=== PATIENT | male | born 1940 | race Caucasian/White ===

== ENCOUNTER 2024-06-04 08:01 | Outpatient (CLI) | payer MEDICARE, OTHER ==
[2024-06-04] MEDS ORDERED: Iopamidol 370 76% 100 ML VIAL ONE (13:43)
== END 2024-06-04 08:02 | disposition home or self-care (01) ==
LOC: CT 08:01
PROVIDERS: ATTEND Internal Medicine
DX: G95.89 Other specified diseases of spinal cord (principal); M48.9 Spondylopathy, unspecified; M79.89 Other specified soft tissue disorders
CPT/HCPCS: 36415; 74177; 82565; Q9967

== ENCOUNTER 2024-06-28 08:45 | Outpatient (CLI) | payer MEDICARE, OTHER | END 2024-06-28 08:46 | disposition home or self-care (01) | LOC: PET 08:45 | PROVIDERS: ATTEND Internal Medicine Hematology & Oncology | DX: C90.00 Multiple myeloma not having achieved remission (principal); C79.51 Secondary malignant neoplasm of bone; E83.52 Hypercalcemia; E88.89 Other specified metabolic disorders | CPT/HCPCS: 78816; A9552 ==

== ENCOUNTER 2024-07-28 23:00 | Inpatient (IN) | payer MEDICARE, OTHER ==
[2024-07-29 00:01] LABS: #Basophils Less than 0.03 10x3/uL (0.0-0.2); #Eosinophils Less than 0.03 10x3/uL (0.0-0.7); %Basophils 0.4 % (0.0-1.0); %Eosinophils 0.8 % (0.0-10.0); %Lymphocytes 5.8 % (21.0-51.0); %Monocytes 5.8 % (0.0-10.0); %Neutrophils 86.4 % (42.0-75.0); Hematocrit 30.2 % (42.0-52.0); Hemoglobin 10.6 g/dL (14.0-18.0); Mean Corpuscular HGB CONC 35.1 g/dL (32.0-36.0); Mean Corpuscular Hemoglobin 31.6 pg (27.0-31.0); Mean Corpuscular Volume 90.1 fL (78.0-98.0); Mean Platelet Volume 9.4 fL (7.4-10.4); Platelet Count 204 10x3/uL (130-400); RBC Distribution Width 15.8 % (11.5-14.5); Red Blood Cell (RBC) Count 3.35 mill/uL (4.70-6.10)
[2024-07-29 00:34] LABS: ALT (SGPT) 32 U/L (Less than 45); AST (SGOT) 30 U/L (11-34); Albumin 2.1 g/dL (3.1-4.5); Alkaline Phosphatase 62 U/L (40-110); Anion Gap 10 mmol/L (10-20); BUN (Urea Nitrogen) 18 mg/dL (8.4-25.7); Bilirubin, Total 0.6 mg/dL (0.3-1.2); Calc. Creatinine Clearance 0 mL/min (70-130); Calcium 7.5 mg/dL (7.8-10.44); Carbon Dioxide 20 mmol/L (23-31); Chloride 104 mmol/L (98-107); Estimated GFR 87; Globulin 3.7 g/dL (2.4-3.5); Glucose 116 mg/dL (83-110); Potassium 3.3 mmol/L (3.5-5.1); Protein, Total 5.8 g/dL (5.8-8.1); Sodium 131 mmol/L (136-145)
[2024-07-29 00:38] LABS: Troponin I Less than 0.010 ng/mL (< 0.028)
[2024-07-29 01:12] LABS: Bacteria/HPF None Seen HPF (None Seen); Bilirubin Negative (Negative); Blood, Urine Negative (Negative); CAUTI Indications for Culture Alt mental st,lethar; Clarity Clear (Clear); Glucose, Urine (Dipstick) Normal (Negative); Ketone, Urine Negative (Negative); Leukocyte Negative Leu/uL (Negative); Nitrite Negative (Negative); Protein, Urine (Dipstick) 20 mg/dL (Neg-Trace); RBC/HPF 0-3 HPF (0-3); Specific Gravity, Urine 1.025 (1.002-1.036); Squamous Epithelial None Seen HPF (0-3)
[2024-07-29 01:15] LABS: Urine Culture Reflex No No
[2024-07-29] MEDS ORDERED: Electrolyte Replacement Protocol 1 EACH FS PRN (02:45)
[2024-07-29] MEDS ORDERED: Calcium Carbonate 500 MG ChewTAB PO PRN (02:46)
[2024-07-29] MEDS ORDERED: Acetaminophen 650 MG Suppository PR PRN (02:46)
[2024-07-29] MEDS ORDERED: Ondansetron PF 4 MG/2 ML Vial IVP PRN (02:46)
[2024-07-29] MEDS ORDERED: Ondansetron ODT 4 MG TAB PO PRN (02:46)
[2024-07-29] MEDS ORDERED: Acetaminophen 325 MG TAB ONE (05:41)
[2024-07-29] MEDS ORDERED: LENALIDOMIDE 25 MG PO SCH (09:00)
[2024-07-29 09:24] VITALS: BMI 20.2
[2024-07-29] MEDS ORDERED: Potassium Chloride 20 MEQ TAB ONE (09:29)
[2024-07-29] MEDS: Lactated Ringer's 500 ML IV SCH (09:34)
[2024-07-29] MEDS: Potassium Chloride 20 MEQ TAB PO SCH (09:35)
[2024-07-29] MEDS ORDERED: Levothyroxine Sodium 112 MCG TAB ONE (12:08)
[2024-07-29] MEDS: Levothyroxine Sodium 25 MCG TAB PO SCH (12:09)
[2024-07-29] MEDS: Levothyroxine Sodium 112 MCG TAB PO SCH (12:09)
[2024-07-29] MEDS: Lenalidomide [Revlimid] 25 MG Capsule PO SCH (14:17)
[2024-07-29 14:20] LABS: Influenza A by NAA Not Detected (NotDetected); Influenza B by NAA Not Detected (NotDetected); RSV by NAA Not Detected (NotDetected); SARS-CoV-2 NAA Rapid Test Not Detected (NotDetected)
[2024-07-29] MEDS: Flecainide 50 MG TAB PO SCH (21:15)
[2024-07-29] MEDS: Rivaroxaban 10 MG TAB PO SCH (23:18)
[2024-07-29] MEDS: Aspirin Chewable 81 MG TAB PO SCH (23:18)
[2024-07-30 05:29] LABS: #Basophils Less than 0.03 10x3/uL (0.0-0.2); #Eosinophils Less than 0.03 10x3/uL (0.0-0.7); %Basophils 0.3 % (0.0-1.0); %Lymphocytes 14.4 % (21.0-51.0); %Monocytes 4.3 % (0.0-10.0); %Neutrophils 80.5 % (42.0-75.0); Hematocrit 33.4 % (42.0-52.0); Hemoglobin 11.7 g/dL (14.0-18.0); Mean Corpuscular Volume 91.3 fL (78.0-98.0); Mean Platelet Volume 9.4 fL (7.4-10.4); Platelet Count 228 10x3/uL (130-400); RBC Distribution Width 15.6 % (11.5-14.5); Red Blood Cell (RBC) Count 3.66 mill/uL (4.70-6.10)
[2024-07-30] MEDS: Levothyroxine Sodium 25 MCG TAB PO SCH (05:34)
[2024-07-30] MEDS: Levothyroxine Sodium 112 MCG TAB PO SCH (05:34)
[2024-07-30 05:53] LABS: ALT (SGPT) 37 U/L (Less than 45); AST (SGOT) 36 U/L (11-34); Albumin 2.5 g/dL (3.1-4.5); Alkaline Phosphatase 76 U/L (40-110); Anion Gap 14 mmol/L (10-20); BUN (Urea Nitrogen) 13 mg/dL (8.4-25.7); Bilirubin, Direct 0.3 mg/dL (0.1-0.3); Calc. Creatinine Clearance 64 mL/min (70-130); Carbon Dioxide 22 mmol/L (23-31); Chloride 98 mmol/L (98-107); Estimated GFR 85; Glucose 108 mg/dL (83-110); Potassium 4.2 mmol/L (3.5-5.1); Protein, Total 6.8 g/dL (5.8-8.1); Sodium 130 mmol/L (136-145)
[2024-07-30 06:24] LABS: Magnesium 1.6 mg/dL (1.6-2.6)
[2024-07-30] MEDS: Finasteride 5 MG TAB PO SCH (08:47)
[2024-07-30] MEDS: Tamsulosin HCl 0.4 MG CAP PO SCH (08:47)
[2024-07-30] MEDS: Dexamethasone 4 MG TAB PO SCH (08:47)
[2024-07-30] MEDS: valACYclovir 500 MG TAB PO SCH (08:47)
[2024-07-30] MEDS: Magnesium 2 GM/50 ML(in water) 2 GM in Premix 1 BAG IVPB SCH (08:48)
[2024-07-30] MEDS: Acetaminophen 325 MG TAB PO PRN (08:59)
[2024-07-30] MEDS ORDERED: Rivaroxaban 10 MG TAB PO SCH (09:00)
[2024-07-30] MEDS ORDERED: Aspirin Chewable 81 MG TAB PO SCH (09:00)
[2024-07-30] MEDS: Sodium Chloride 0.9% 1,000 ML IV SCH ×2 (11:39→17:24)
[2024-07-30 12:14] LABS: Bacteria/HPF None Seen HPF (None Seen); Bilirubin Negative (Negative); Blood, Urine Negative (Negative); CAUTI Indications for Culture Alt mental st,lethar; Clarity Clear (Clear); Glucose, Urine (Dipstick) Normal (Negative); Ketone, Urine Negative (Negative); Leukocyte Negative Leu/uL (Negative); Nitrite Negative (Negative); Protein, Urine (Dipstick) 20 mg/dL (Neg-Trace); RBC/HPF 0-3 HPF (0-3); Specific Gravity, Urine 1.015 (1.002-1.036); Squamous Epithelial None Seen HPF (0-3); Urobilinogen Normal mg/dL (Less than 2); pH, Urine 5.5 (5.0-9.0)
[2024-07-30 12:18] LABS: Urine Culture Reflex No No
[2024-07-30] MEDS: Metoprolol Tartrate 25 MG TAB PO SCH (16:04)
[2024-07-30] MEDS: Digoxin 0.5 MG/2 ML AMP SLOW IVP SCH (16:14)
[2024-07-30] MEDS: dilTIAZem 25 MG/5 ML VIAL SLOW IVP SCH (17:08)
[2024-07-30] MEDS: Rivaroxaban 10 MG TAB PO SCH (17:36)
[2024-07-30] MEDS: Aspirin Chewable 81 MG TAB PO SCH (20:36)
[2024-07-30] MEDS: traMADol HCl 50 MG TAB PO PRN (22:40)
[2024-07-30] MEDS: dilTIAZem 125 MG in Sodium Chloride 0.9% 100 ML IVPB SCH (22:52)
[2024-07-31 05:03] LABS: Hemoglobin 10.5 g/dL (14.0-18.0); Mean Corpuscular HGB CONC 36.2 g/dL (32.0-36.0); Mean Corpuscular Hemoglobin 32.2 pg (27.0-31.0); Mean Platelet Volume 9.8 fL (7.4-10.4); Platelet Count 190 10x3/uL (130-400); RBC Distribution Width 15.6 % (11.5-14.5); Red Blood Cell (RBC) Count 3.26 mill/uL (4.70-6.10)
[2024-07-31 05:34] LABS: Anion Gap 13 mmol/L (10-20); BUN (Urea Nitrogen) 20 mg/dL (8.4-25.7); Calc. Creatinine Clearance 67 mL/min (70-130); Calcium 6.7 mg/dL (7.8-10.44); Carbon Dioxide 18 mmol/L (23-31); Chloride 104 mmol/L (98-107); Estimated GFR 86; Glucose 128 mg/dL (83-110); Magnesium 1.8 mg/dL (1.6-2.6); Potassium 3.3 mmol/L (3.5-5.1); Sodium 132 mmol/L (136-145)
[2024-07-31 05:41] LABS: Band 3 % (5-11); Burr Cells SLIGHT = 2-5 cells HPF (0-1); Large Platelets 3.8 % (0-5); Lymphocytes 3 % (21-51); Monocytes 12 % (0-10); Neutrophil 82 % (42-75); Platelet Adequacy Comment Platelets Normal; Polychromasia SLIGHT = 2-3 cells HPF (0-2); Reactive Lymphocytes 1 % (0-10); Smudge Cells 5.8 %
[2024-07-31] MEDS: Lorazepam 2 MG/ML VIAL SLOW IVP PRN (09:47)
[2024-07-31] MEDS: Magnesium 2 GM/50 ML(in water) 2 GM in Premix 1 BAG IVPB SCH ×2 (09:58→16:08)
[2024-07-31] MEDS: Potassium Chloride 20 MEQ TAB PO SCH ×3 (09:58→16:18)
[2024-07-31] MEDS: QUEtiapine 25 MG TAB PO SCH ×2 (13:43→21:16)
[2024-07-31] MEDS ORDERED: Magnesium Sulfate 4 GM in Sodium Chloride 0.9% 250 ML 250 ML IVPB SCH (14:15)
[2024-07-31] MEDS: Sodium Chloride 0.9% 1,000 ML IV SCH (16:13)
[2024-07-31] MEDS: Amiodarone 200 MG TAB PO SCH (21:16)
[2024-08-01 04:26] LABS: Hematocrit 27.3 % (42.0-52.0); Hemoglobin 9.6 g/dL (14.0-18.0); Mean Corpuscular HGB CONC 35.2 g/dL (32.0-36.0); Mean Platelet Volume 9.7 fL (7.4-10.4); Platelet Count 175 10x3/uL (130-400); RBC Distribution Width 15.9 % (11.5-14.5)
[2024-08-01 04:45] LABS: Anion Gap 11 mmol/L (10-20); BUN (Urea Nitrogen) 18 mg/dL (8.4-25.7); Calc. Creatinine Clearance 82 mL/min (70-130); Calcium 6.6 mg/dL (7.8-10.44); Carbon Dioxide 18 mmol/L (23-31); Chloride 107 mmol/L (98-107); Estimated GFR 92; Glucose 101 mg/dL (83-110); Magnesium 2.5 mg/dL (1.6-2.6); Potassium 3.7 mmol/L (3.5-5.1); Sodium 132 mmol/L (136-145)
[2024-08-01] MEDS: Ipratropium/Albuterol 3 ML NEB NEB PRN (04:55)
[2024-08-01 05:23] LABS: Actual Bicarbonate (HCO3a) 18.1 mEq/L (22-28); Base Excess (BEa) -4.8 mEq/L (-2.0 to +3.0); CO2 Tension 26.7 mmHg (35.0-45.0); Calcium, Ionized (arterial) 0.98 mmol/L (1.12-1.30); Carboxyhemoglobin (COHb) 0.3 gm% (0.0-3.0); Hematocrit-ABG 29 % (42.0-52.0); Hemoglobin (Hb) 9.9 g/dL (14.0-18.0); O2 Tension (PaO2), arterial 73.3 mmHg (> 60.0); Potassium - ABG Lab 3.62 mmol/L (3.70-5.30)
[2024-08-01 05:24] LABS: Puncture Site Left Radial artery
[2024-08-01 05:25] LABS: ALV-art Gradient 43.055 mmHg (0-20)
[2024-08-01] MEDS: Sodium Chloride 0.65% Nasal 44 ML BOT EA NARE PRN (05:48)
[2024-08-01 06:21] LABS: Lactic Acid 0.69 mmol/L (0.50-2.20)
[2024-08-01 07:04] LABS: Anisocytosis SLIGHT = 6-15 cells HPF (0-5); Band 14 % (5-11); Burr Cells SLIGHT = 2-5 cells HPF (0-1); Eosinophils 1 % (0-10); Large Platelets 5.9 % (0-5); Lymphocytes 21 % (21-51); Macrocytosis SLIGHT = 6-15 cells HPF (0-5); Monocytes 9 % (0-10); Neutrophil 56 % (42-75); Nucleated RBC (Manual Ct) 1 % (0); Platelet Adequacy Comment Platelets Normal; Polychromasia SLIGHT = 2-3 cells HPF (0-2); Smudge Cells 18.6 %
[2024-08-01] MEDS: Amiodarone 200 MG TAB PO SCH ×2 (09:28→14:59)
[2024-08-01] MEDS: QUEtiapine 100 MG TAB PO SCH (21:17)
[2024-08-02 05:03] LABS: Anion Gap 13 mmol/L (10-20); BUN (Urea Nitrogen) 15 mg/dL (8.4-25.7); Calc. Creatinine Clearance 83 mL/min (70-130); Calcium 6.7 mg/dL (7.8-10.44); Carbon Dioxide 18 mmol/L (23-31); Chloride 110 mmol/L (98-107); Estimated GFR 92; Glucose 100 mg/dL (83-110); Magnesium 2.1 mg/dL (1.6-2.6); Potassium 3.9 mmol/L (3.5-5.1); Sodium 137 mmol/L (136-145)
[2024-08-02 05:13] LABS: Hematocrit 26.6 % (42.0-52.0); Hemoglobin 9.4 g/dL (14.0-18.0); Mean Corpuscular HGB CONC 35.3 g/dL (32.0-36.0); Mean Corpuscular Hemoglobin 32.1 pg (27.0-31.0); Mean Corpuscular Volume 90.8 fL (78.0-98.0); Mean Platelet Volume 9.9 fL (7.4-10.4); Platelet Count 193 10x3/uL (130-400); RBC Distribution Width 16.2 % (11.5-14.5); Red Blood Cell (RBC) Count 2.93 mill/uL (4.70-6.10)
[2024-08-02 05:57] LABS: Anisocytosis SLIGHT = 6-15 cells HPF (0-5); Band 8 % (5-11); Dohle Bodies SLIGHT; Lymphocytes 8 % (21-51); Monocytes 11 % (0-10); Neutrophil 59 % (42-75); Ovalocytes SLIGHT = 2-5 cells HPF (0-1); Platelet Adequacy Comment Platelets Normal; Polychromasia SLIGHT = 2-3 cells HPF (0-2); Reactive Lymphocytes 15 % (0-10); Smudge Cells 29.4 %; Toxic Granulation SLIGHT
[2024-08-02] MEDS: Sodium Chloride 0.9% 1,000 ML IV SCH (09:14)
[2024-08-02] MEDS: Metoprolol Succinate XL 25 MG ER.TAB PO SCH (09:16)
[2024-08-02] MEDS: Calcium Carbonate 500 MG ChewTAB PO SCH (09:17)
[2024-08-02] MEDS: Potassium Chloride 20 MEQ TAB PO SCH (09:18)
[2024-08-02] MEDS: CALCIUM GLUC 1 GM/NS 50 ML 1 GM in Premix 1 BAG IVPB SCH (11:10)
[2024-08-02] MEDS: QUEtiapine 25 MG TAB PO SCH (20:35)
[2024-08-02] MEDS: Amiodarone 200 MG TAB PO SCH (20:36)
[2024-08-02] MEDS: Lorazepam 2 MG/ML VIAL SLOW IVP SCH (22:52)
[2024-08-03] MEDS: Lorazepam 2 MG/ML VIAL SLOW IVP SCH ×2 (02:26→11:29)
[2024-08-03 05:11] LABS: Hematocrit 26.6 % (42.0-52.0); Hemoglobin 9.4 g/dL (14.0-18.0); Mean Corpuscular HGB CONC 35.3 g/dL (32.0-36.0); Mean Corpuscular Volume 90.5 fL (78.0-98.0); Mean Platelet Volume 9.5 fL (7.4-10.4); Platelet Count 221 10x3/uL (130-400); RBC Distribution Width 16.2 % (11.5-14.5); Red Blood Cell (RBC) Count 2.94 mill/uL (4.70-6.10)
[2024-08-03 05:16] LABS: Anion Gap 12 mmol/L (10-20); BUN (Urea Nitrogen) 18 mg/dL (8.4-25.7); Calc. Creatinine Clearance 72 mL/min (70-130); Calcium 7.6 mg/dL (7.8-10.44); Carbon Dioxide 19 mmol/L (23-31); Chloride 107 mmol/L (98-107); Estimated GFR 88; Glucose 83 mg/dL (83-110); Magnesium 1.7 mg/dL (1.6-2.6); Potassium 3.8 mmol/L (3.5-5.1); Sodium 134 mmol/L (136-145)
[2024-08-03 05:58] LABS: Anisocytosis SLIGHT = 6-15 cells HPF (0-5); Band 6 % (5-11); Lymphocytes 27 % (21-51); Monocytes 9 % (0-10); Neutrophil 51 % (42-75); Ovalocytes SLIGHT = 2-5 cells HPF (0-1); Platelet Adequacy Comment Platelets Normal; Polychromasia SLIGHT = 2-3 cells HPF (0-2); Reactive Lymphocytes 7 % (0-10)
[2024-08-03] MEDS: Magnesium 2 GM/50 ML(in water) 2 GM in Premix 1 BAG IVPB SCH (07:51)
[2024-08-03] MEDS: Potassium Chloride 20 MEQ TAB PO SCH (07:58)
[2024-08-03] MEDS: Metoprolol Succinate XL 50 MG ER.TAB PO SCH (08:06)
[2024-08-03] MEDS ORDERED: traZODone HCl 50 MG TAB PO PRN (11:01)
[2024-08-03] MEDS: Pantoprazole 40 MG DR.TAB PO SCH (11:29)
[2024-08-03] MEDS: Dexamethasone 4 MG TAB PO SCH (11:29)
[2024-08-03] MEDS: Benztropine 1 MG TAB PO SCH (11:30)
[2024-08-03] MEDS: QUEtiapine 25 MG TAB PO SCH (11:30)
[2024-08-03] MEDS: Senokot 8.6 MG TAB PO SCH (11:30)
[2024-08-03] MEDS: Haloperidol Lactate 5 MG/ML VIAL SLOW IVP SCH (23:47)
[2024-08-04] MEDS: Senokot 8.6 MG TAB PO SCH (01:32)
[2024-08-04] MEDS: QUEtiapine 100 MG TAB PO SCH (01:32)
[2024-08-04 04:33] LABS: Anion Gap 13 mmol/L (10-20); BUN (Urea Nitrogen) 22 mg/dL (8.4-25.7); Calc. Creatinine Clearance 83 mL/min (70-130); Calcium 7.3 mg/dL (7.8-10.44); Carbon Dioxide 18 mmol/L (23-31); Chloride 106 mmol/L (98-107); Estimated GFR 92; Glucose 97 mg/dL (83-110); Magnesium 1.7 mg/dL (1.6-2.6); Potassium 3.8 mmol/L (3.5-5.1); Sodium 133 mmol/L (136-145)
[2024-08-04] MEDS: Metoprolol Tartrate 5 MG (5 mL) VIAL IVP SCH (05:50)
[2024-08-04] MEDS: Magnesium 2 GM/50 ML(in water) 2 GM in Premix 1 BAG IVPB SCH ×2 (08:11→16:39)
[2024-08-04] MEDS: Pantoprazole 40 MG DR.TAB PO SCH (08:12)
[2024-08-04] MEDS: Metoprolol Succinate XL 50 MG ER.TAB PO SCH (08:12)
[2024-08-04] MEDS: Polyethylene Glycol 3350 17 GM Packet PO SCH (16:39)
[2024-08-04] MEDS: traZODone HCl 50 MG TAB PO SCH (19:37)
[2024-08-04] MEDS ORDERED: Lorazepam 2 MG/ML VIAL SLOW IVP SCH (20:45)
[2024-08-04] MEDS: Lorazepam 2 MG/ML VIAL SLOW IVP SCH (20:45)
[2024-08-04 21:26] LABS: Actual Bicarbonate (HCO3v) 18.2 mEq/L (22-28); Analyzer IN Cardio OR; Base Excess -6.5 mEq/L (-2.0 to +3.0); Calcium, Ionized (venous) 0.97 mmol/L (1.16-1.32); Chloride (VBG) 105 mmol/L (98-106); Hematocrit-VBG 32 % (42.0-52.0); Hemoglobin (Hb) 10.9 g/dL (12.6-17.4); Potassium (VBG) 4.44 mmol/L (3.70-5.30); Sodium 135 mmol/L (133-146); pH (venous) 7.355 (7.32-7.43)
[2024-08-04 21:32] LABS: Hematocrit 30.3 % (42.0-52.0); Hemoglobin 10.1 g/dL (14.0-18.0); Mean Corpuscular HGB CONC 33.3 g/dL (32.0-36.0); Mean Corpuscular Hemoglobin 31.7 pg (27.0-31.0); Mean Platelet Volume 9.4 fL (7.4-10.4); Platelet Count 245 10x3/uL (130-400); RBC Distribution Width 16.5 % (11.5-14.5); Red Blood Cell (RBC) Count 3.19 mill/uL (4.70-6.10)
[2024-08-04] MEDS ORDERED: Haloperidol Lactate 5 MG/ML VIAL IM PRN (21:41)
[2024-08-04 21:47] LABS: ALT (SGPT) 36 U/L (Less than 45); AST (SGOT) 30 U/L (11-34); Albumin 2.3 g/dL (3.1-4.5); Alkaline Phosphatase 71 U/L (40-110); Anion Gap 18 mmol/L (10-20); BUN (Urea Nitrogen) 30 mg/dL (8.4-25.7); Bilirubin, Total 1.2 mg/dL (0.3-1.2); CK (CPK) 147 U/L (30-200); Calc. Creatinine Clearance 48 mL/min (70-130); Calcium 7.6 mg/dL (7.8-10.44); Carbon Dioxide 16 mmol/L (23-31); Chloride 107 mmol/L (98-107); Estimated GFR 63; Globulin 3.6 g/dL (2.4-3.5); Glucose 117 mg/dL (83-110); Potassium 4.5 mmol/L (3.5-5.1); Protein, Total 5.9 g/dL (5.8-8.1); Sodium 136 mmol/L (136-145)
[2024-08-04 21:48] LABS: Troponin I Less than 0.010 ng/mL (< 0.028)
[2024-08-04 22:01] LABS: Anisocytosis SLIGHT = 6-15 cells HPF (0-5); Band 9 % (5-11); Burr Cells SLIGHT = 2-5 cells HPF (0-1); Dohle Bodies SLIGHT; Lymphocytes 47 % (21-51); Monocytes 9 % (0-10); Neutrophil 10 % (42-75); Ovalocytes SLIGHT = 2-5 cells HPF (0-1); Platelet Adequacy Comment Platelets Normal; Poikilocytosis SLIGHT = 6-15 cells HPF (0-5); Polychromasia SLIGHT = 2-3 cells HPF (0-2); Reactive Lymphocytes 25 % (0-10); Schistocytes SLIGHT = 2-5 cells HPF (0-1); Smudge Cells 14.1 %; Toxic Granulation SLIGHT; Vacuoles SLIGHT
[2024-08-04] MEDS: Haloperidol Lactate 5 MG/ML VIAL ONE (22:50)
[2024-08-04] MEDS: Sodium Chloride 0.9% 1,000 ML IV SCH (22:51)
[2024-08-05] MEDS ORDERED: Etomidate 40 MG (20 mL) VIAL ONE
[2024-08-05] MEDS ORDERED: Rocuronium Bromide 10 MG/ML (10ML VIAL) ONE
[2024-08-05] MEDS: NOREPINEPHRINE 8 MG/250 ML-D5W 250 ML ONE (00:15)
[2024-08-05] MEDS ORDERED: Ventilator Sedation Protocol FS SCH (00:30)
[2024-08-05 00:42] LABS: Actual Bicarbonate (HCO3a) 21.5 mEq/L (22-28); Base Excess (BEa) -3.6 mEq/L (-2.0 to +3.0); CO2 Tension 38.9 mmHg (35.0-45.0); Calcium, Ionized (arterial) 1.04 mmol/L (1.12-1.30); Carboxyhemoglobin (COHb) 0.6 gm% (0.0-3.0); Hematocrit-ABG 27 % (42.0-52.0); Hemoglobin (Hb) 9.3 g/dL (14.0-18.0); O2 Tension (PaO2), arterial 83.2 mmHg (> 60.0); Potassium - ABG Lab 3.85 mmol/L (3.70-5.30)
[2024-08-05] MEDS ORDERED: Fentanyl BOLUS 250 ML IVPB PRN (00:45)
[2024-08-05] MEDS ORDERED: Morphine 2 MG/ML VIAL SLOW IVP PRN (00:45)
[2024-08-05] MEDS ORDERED: DISCONTINUE PREVIOUS NARCOTIC PAIN MEDICATIONS AND BENZODIAZEPINES FS SCH (00:45)
[2024-08-05] MEDS ORDERED: Propofol BOLUS 1,000 MG/100 ML VIAL IV PRN (00:45)
[2024-08-05 00:47] LABS: Puncture Site Right Radial artery
[2024-08-05 00:48] LABS: ALV-art Gradient 153.375 mmHg (0-20)
[2024-08-05] MEDS: Sodium Chloride 0.9% 500 ML IV SCH (01:00)
[2024-08-05] MEDS: Lorazepam 2 MG/ML VIAL SLOW IVP PRN (01:31)
[2024-08-05 01:41] LABS: ALT (SGPT) 34 U/L (Less than 45); AST (SGOT) 29 U/L (11-34); Albumin 2.2 g/dL (3.1-4.5); Alkaline Phosphatase 66 U/L (40-110); Anion Gap 14 mmol/L (10-20); BUN (Urea Nitrogen) 30 mg/dL (8.4-25.7); Bilirubin, Total 1.2 mg/dL (0.3-1.2); Calc. Creatinine Clearance 54 mL/min (70-130); Calcium 7.2 mg/dL (7.8-10.44); Carbon Dioxide 19 mmol/L (23-31); Chloride 108 mmol/L (98-107); Estimated GFR 73; Globulin 3.4 g/dL (2.4-3.5); Glucose 151 mg/dL (83-110); Potassium 3.8 mmol/L (3.5-5.1); Protein, Total 5.6 g/dL (5.8-8.1); Sodium 137 mmol/L (136-145)
[2024-08-05 01:42] LABS: Lactic Acid 1.52 mmol/L (0.50-2.20)
[2024-08-05] MEDS: Dexmedetomidine In 0.9 % NaCl 100 ML IVPB SCH (03:56)
[2024-08-05 04:02] LABS: Anion Gap 13 mmol/L (10-20); BUN (Urea Nitrogen) 29 mg/dL (8.4-25.7); Calc. Creatinine Clearance 56 mL/min (70-130); Calcium 7.1 mg/dL (7.8-10.44); Carbon Dioxide 19 mmol/L (23-31); Chloride 106 mmol/L (98-107); Estimated GFR 77; Glucose 157 mg/dL (83-110); Magnesium 2.2 mg/dL (1.6-2.6); Potassium 3.8 mmol/L (3.5-5.1); Sodium 134 mmol/L (136-145)
[2024-08-05 04:14] LABS: Hematocrit 28.4 % (42.0-52.0); Hemoglobin 9.8 g/dL (14.0-18.0); Mean Corpuscular HGB CONC 34.5 g/dL (32.0-36.0); Mean Corpuscular Hemoglobin 32.5 pg (27.0-31.0); Mean Platelet Volume 9.4 fL (7.4-10.4); Platelet Count 217 10x3/uL (130-400); RBC Distribution Width 16.6 % (11.5-14.5); Red Blood Cell (RBC) Count 3.02 mill/uL (4.70-6.10)
[2024-08-05 04:49] LABS: Anisocytosis SLIGHT = 6-15 cells HPF (0-5); Burr Cells SLIGHT = 2-5 cells HPF (0-1); Large Platelets 30.8 % (0-5); Lymphocytes 38 % (21-51); Monocytes 8 % (0-10); Neutrophil 23 % (42-75); Ovalocytes SLIGHT = 2-5 cells HPF (0-1); Platelet Adequacy Comment Platelets Normal; Poikilocytosis SLIGHT = 6-15 cells HPF (0-5); Polychromasia SLIGHT = 2-3 cells HPF (0-2); Reactive Lymphocytes 31 % (0-10); Tear Drops SLIGHT = 2-5 cells HPF (0-1)
[2024-08-05] MEDS: Propofol 1,000 MG/100 ML VIAL IV PRN (06:40)
[2024-08-05] MEDS: Fentanyl CADD 100 ML IV SCH (09:48)
[2024-08-05] MEDS: NOREPINEPHRINE 8 MG/250 ML-D5W 250 ML IVPB SCH (11:27)
[2024-08-05] MEDS: Sodium Chloride 0.9% 1,000 ML IV SCH (11:37)
[2024-08-05] MEDS: Digoxin 0.5 MG/2 ML AMP SLOW IVP SCH (11:41)
[2024-08-05] MEDS: Thiamine HCl 200 MG/2 ML VIAL SLOW IVP SCH (16:31)
[2024-08-05] MEDS: Metoprolol Tartrate 25 MG TAB PO SCH (20:06)
[2024-08-06 04:13] LABS: Hematocrit 25.2 % (42.0-52.0); Hemoglobin 8.7 g/dL (14.0-18.0); Mean Corpuscular HGB CONC 34.5 g/dL (32.0-36.0); Mean Corpuscular Hemoglobin 32.1 pg (27.0-31.0); Mean Platelet Volume 9.5 fL (7.4-10.4); Platelet Count 161 10x3/uL (130-400); RBC Distribution Width 16.8 % (11.5-14.5); Red Blood Cell (RBC) Count 2.71 mill/uL (4.70-6.10)
[2024-08-06 04:43] LABS: Anion Gap 11 mmol/L (10-20); BUN (Urea Nitrogen) 20 mg/dL (8.4-25.7); Calc. Creatinine Clearance 91 mL/min (70-130); Calcium 6.4 mg/dL (7.8-10.44); Carbon Dioxide 19 mmol/L (23-31); Chloride 110 mmol/L (98-107); Estimated GFR 93; Glucose 111 mg/dL (83-110); Magnesium 1.8 mg/dL (1.6-2.6); Potassium 3.7 mmol/L (3.5-5.1); Sodium 136 mmol/L (136-145)
[2024-08-06 04:46] LABS: Anisocytosis SLIGHT = 6-15 cells HPF (0-5); Band 2 % (5-11); Burr Cells SLIGHT = 2-5 cells HPF (0-1); Hypochromia SLIGHT = 6-15 cells HPF (0-5); Large Platelets 17.2 % (0-5); Lymphocytes 74 % (21-51); Monocytes 12 % (0-10); Myelocyte 2 % (0-0); Neutrophil 9 % (42-75); Platelet Adequacy Comment Platelets Normal; Polychromasia SLIGHT = 2-3 cells HPF (0-2); Reactive Lymphocytes 2 % (0-10); Smudge Cells 17.2 %
[2024-08-06] MEDS: Folic Acid 1 MG TAB PER TUBE SCH (09:18)
[2024-08-06] MEDS: Magnesium 2 GM/50 ML(in water) 2 GM in Premix 1 BAG IVPB SCH (09:25)
[2024-08-06] MEDS ORDERED: Bisacodyl 10 MG SUPP PR PRN (12:08)
[2024-08-06] MEDS ORDERED: Bisacodyl 10 MG SUPP PR ONE (12:09)
[2024-08-06] MEDS: Potassium Bicarbonate/Cit Ac 20 MEQ TAB PO SCH (13:07)
[2024-08-06] MEDS: Sodium Chloride 0.9% 500 ML IV SCH (13:10)
[2024-08-06] MEDS: Digoxin 0.5 MG/2 ML AMP SLOW IVP SCH ×2 (13:28→13:37)
[2024-08-06] MEDS: Piperacillin/Tazobactam 3.375 GM in Sodium Chloride 0.9% 100 ML IVPB SCH ×2 (13:39→17:14)
[2024-08-06] MEDS: Niacin SR 500 MG CAP PER TUBE SCH (14:18)
[2024-08-06] MEDS ORDERED: Piperacillin/Tazobactam 4.5 GM in Sodium Chloride 0.9% 100 ML IVPB SCH (18:00)
[2024-08-06] MEDS: Dexamethasone 4 MG TAB PO SCH (19:17)
[2024-08-07 04:42] LABS: Hematocrit 24.9 % (42.0-52.0); Hemoglobin 8.4 g/dL (14.0-18.0); Mean Corpuscular HGB CONC 33.7 g/dL (32.0-36.0); Mean Corpuscular Hemoglobin 31.7 pg (27.0-31.0); Mean Platelet Volume 9.5 fL (7.4-10.4); Platelet Count 165 10x3/uL (130-400); RBC Distribution Width 17.2 % (11.5-14.5); Red Blood Cell (RBC) Count 2.65 mill/uL (4.70-6.10)
[2024-08-07 04:46] LABS: Digoxin 0.24 ng/mL (0.8-2.0)
[2024-08-07 04:49] LABS: Anion Gap 11 mmol/L (10-20); BUN (Urea Nitrogen) 17 mg/dL (8.4-25.7); Calc. Creatinine Clearance 83 mL/min (70-130); Calcium 6.6 mg/dL (7.8-10.44); Carbon Dioxide 18 mmol/L (23-31); Chloride 109 mmol/L (98-107); Estimated GFR 91; Glucose 133 mg/dL (83-110); Magnesium 2.2 mg/dL (1.6-2.6); Potassium 3.6 mmol/L (3.5-5.1); Sodium 134 mmol/L (136-145)
[2024-08-07 05:23] LABS: Anisocytosis SLIGHT = 6-15 cells HPF (0-5); Band 14 % (5-11); Burr Cells SLIGHT = 2-5 cells HPF (0-1); Hypochromia SLIGHT = 6-15 cells HPF (0-5); Large Platelets 28.6 % (0-5); Lymphocytes 14 % (21-51); Monocytes 14 % (0-10); Neutrophil 57 % (42-75); Ovalocytes SLIGHT = 2-5 cells HPF (0-1); Platelet Adequacy Comment Platelets Normal; Poikilocytosis MODERATE=16-30 cells HPF (0-5); Polychromasia SLIGHT = 2-3 cells HPF (0-2); Smudge Cells 14.3 %; Toxic Granulation MODERATE; Vacuoles SLIGHT
[2024-08-07] MEDS: Potassium Bicarbonate/Cit Ac 20 MEQ TAB PO SCH (08:06)
[2024-08-07] MEDS: Digoxin 0.5 MG/2 ML AMP SLOW IVP SCH (08:08)
[2024-08-07] MEDS: FILGRASTIM-AYOW 480 MCG/0.8 ML SYRINGE SC SCH (09:21)
[2024-08-07] MEDS: Amiodarone 200 MG TAB PO SCH (09:22)
[2024-08-07] MEDS: Meropenem 1 GM in Sodium Chloride 0.9% 100 ML IVPB SCH ×2 (12:00→20:11)
[2024-08-07] MEDS: Sodium Chloride 0.9% 500 ML IV SCH (12:35)
[2024-08-07] MEDS ORDERED: Meropenem 500 MG in Sodium Chloride 0.9% 100 ML IVPB SCH (14:00)
[2024-08-07] MEDS: Niacin SR 500 MG CAP PER TUBE SCH (19:08)
[2024-08-08 04:26] LABS: Hematocrit 23.4 % (42.0-52.0); Hemoglobin 7.9 g/dL (14.0-18.0); Mean Corpuscular HGB CONC 33.8 g/dL (32.0-36.0); Mean Corpuscular Hemoglobin 31.2 pg (27.0-31.0); Mean Corpuscular Volume 92.5 fL (78.0-98.0); Mean Platelet Volume 9.7 fL (7.4-10.4); Platelet Count 156 10x3/uL (130-400); RBC Distribution Width 16.8 % (11.5-14.5); Red Blood Cell (RBC) Count 2.53 mill/uL (4.70-6.10)
[2024-08-08 04:38] LABS: ALT (SGPT) 17 U/L (Less than 45); AST (SGOT) 18 U/L (11-34); Albumin 1.4 g/dL (3.1-4.5); Alkaline Phosphatase 55 U/L (40-110); Anion Gap 10 mmol/L (10-20); BUN (Urea Nitrogen) 20 mg/dL (8.4-25.7); Bilirubin, Total 0.9 mg/dL (0.3-1.2); Calc. Creatinine Clearance 90 mL/min (70-130); Calcium 6.5 mg/dL (7.8-10.44); Carbon Dioxide 21 mmol/L (23-31); Chloride 110 mmol/L (98-107); Estimated GFR 92; Globulin 3.5 g/dL (2.4-3.5); Glucose 108 mg/dL (83-110); Potassium 3.9 mmol/L (3.5-5.1); Protein, Total 4.9 g/dL (5.8-8.1); Sodium 137 mmol/L (136-145)
[2024-08-08 05:03] LABS: Digoxin 0.38 ng/mL (0.8-2.0)
[2024-08-08 05:39] LABS: Anisocytosis SLIGHT = 6-15 cells HPF (0-5); Band 39 % (5-11); Burr Cells SLIGHT = 2-5 cells HPF (0-1); Dohle Bodies SLIGHT; Hypochromia SLIGHT = 6-15 cells HPF (0-5); Large Platelets 11.2 % (0-5); Lymphocytes 26 % (21-51); Metamyelocyte 5 % (0-0); Monocytes 4 % (0-10); Neutrophil 23 % (42-75); Ovalocytes SLIGHT = 2-5 cells HPF (0-1); Platelet Adequacy Comment Platelets Normal; Polychromasia SLIGHT = 2-3 cells HPF (0-2); Reactive Lymphocytes 3 % (0-10); Smudge Cells 9.3 %; Toxic Granulation MODERATE
[2024-08-08] MEDS: Magnesium 2 GM/50 ML(in water) 2 GM in Premix 1 BAG IVPB SCH (14:40)
[2024-08-09 04:55] LABS: Hematocrit 24.9 % (42.0-52.0); Hemoglobin 8.6 g/dL (14.0-18.0); Mean Corpuscular HGB CONC 34.5 g/dL (32.0-36.0); Mean Corpuscular Volume 92.6 fL (78.0-98.0); Mean Platelet Volume 10.1 fL (7.4-10.4); Platelet Count 170 10x3/uL (130-400); RBC Distribution Width 17.1 % (11.5-14.5); Red Blood Cell (RBC) Count 2.69 mill/uL (4.70-6.10)
[2024-08-09 05:25] LABS: Band 8 % (5-11); Large Platelets 7.8 % (0-5); Lymphocytes 15 % (21-51); Monocytes 3 % (0-10); Neutrophil 73 % (42-75); Platelet Adequacy Comment Platelets Normal; Polychromasia SLIGHT = 2-3 cells HPF (0-2); Reactive Lymphocytes 2 % (0-10); Smudge Cells 11.8 %; Toxic Granulation SLIGHT
[2024-08-09 05:43] LABS: ALT (SGPT) 34 U/L (Less than 45); AST (SGOT) 32 U/L (11-34); Albumin 1.6 g/dL (3.1-4.5); Alkaline Phosphatase 67 U/L (40-110); Anion Gap 12 mmol/L (10-20); BUN (Urea Nitrogen) 24 mg/dL (8.4-25.7); Bilirubin, Total 0.9 mg/dL (0.3-1.2); Calc. Creatinine Clearance 85 mL/min (70-130); Calcium 6.9 mg/dL (7.8-10.44); Carbon Dioxide 20 mmol/L (23-31); Chloride 109 mmol/L (98-107); Estimated GFR 91; Globulin 3.5 g/dL (2.4-3.5); Glucose 103 mg/dL (83-110); Potassium 3.7 mmol/L (3.5-5.1); Protein, Total 5.1 g/dL (5.8-8.1); Sodium 137 mmol/L (136-145)
[2024-08-09] MEDS: Magnesium 2 GM/50 ML(in water) 2 GM in Premix 1 BAG IVPB SCH (11:01)
[2024-08-10 05:17] LABS: ALT (SGPT) 32 U/L (Less than 45); AST (SGOT) 23 U/L (11-34); Albumin 1.8 g/dL (3.1-4.5); Alkaline Phosphatase 78 U/L (40-110); Anion Gap 11 mmol/L (10-20); BUN (Urea Nitrogen) 21 mg/dL (8.4-25.7); Calc. Creatinine Clearance 88 mL/min (70-130); Calcium 7.3 mg/dL (7.8-10.44); Carbon Dioxide 21 mmol/L (23-31); Chloride 108 mmol/L (98-107); Estimated GFR 92; Globulin 3.6 g/dL (2.4-3.5); Glucose 103 mg/dL (83-110); Magnesium 1.8 mg/dL (1.6-2.6); Protein, Total 5.4 g/dL (5.8-8.1); Sodium 136 mmol/L (136-145)
[2024-08-10 06:49] LABS: Hematocrit 27.6 % (42.0-52.0); Hemoglobin 9.5 g/dL (14.0-18.0); Mean Corpuscular HGB CONC 34.4 g/dL (32.0-36.0); Mean Corpuscular Hemoglobin 31.4 pg (27.0-31.0); Mean Corpuscular Volume 91.1 fL (78.0-98.0); Platelet Count 212 10x3/uL (130-400); RBC Distribution Width 16.9 % (11.5-14.5); Red Blood Cell (RBC) Count 3.03 mill/uL (4.70-6.10)
[2024-08-10 07:45] LABS: Band 7 % (5-11); Large Platelets 2.9 % (0-5); Lymphocytes 12 % (21-51); Monocytes 12 % (0-10); Neutrophil 68 % (42-75); Ovalocytes SLIGHT = 2-5 cells HPF (0-1); Platelet Adequacy Comment Platelets Normal; Polychromasia SLIGHT = 2-3 cells HPF (0-2); Reactive Lymphocytes 1 % (0-10)
[2024-08-10] MEDS: Losartan 25 MG TAB PO SCH (09:07)
[2024-08-10] MEDS: Magnesium 2 GM/50 ML(in water) 2 GM in Premix 1 BAG IVPB SCH (09:08)
[2024-08-10] MEDS ORDERED: Amiodarone 450 MG in Dextrose 5% in Water 250 ML IVPB SCH (16:15)
[2024-08-10] MEDS: CEFAZOLIN 2 GM in Sodium Chloride 0.9% 100 ML IVPB SCH (17:33)
[2024-08-10] MEDS: Amiodarone 150 MG in Dextrose 5% in Water 100 ML IVPB SCH (20:57)
[2024-08-10] MEDS: Apixaban 5 MG TAB PO SCH (21:07)
[2024-08-10] MEDS: Atorvastatin Calcium 40 MG TAB PO SCH (21:07)
[2024-08-11 05:00] LABS: Hematocrit 27.8 % (42.0-52.0); Hemoglobin 9.5 g/dL (14.0-18.0); Mean Corpuscular HGB CONC 34.2 g/dL (32.0-36.0); Mean Corpuscular Hemoglobin 31.1 pg (27.0-31.0); Mean Corpuscular Volume 91.1 fL (78.0-98.0); Mean Platelet Volume 10.3 fL (7.4-10.4); Platelet Count 238 10x3/uL (130-400); Red Blood Cell (RBC) Count 3.05 mill/uL (4.70-6.10)
[2024-08-11 05:16] LABS: Anion Gap 11 mmol/L (10-20); BUN (Urea Nitrogen) 21 mg/dL (8.4-25.7); Calc. Creatinine Clearance 92 mL/min (70-130); Calcium 7.4 mg/dL (7.8-10.44); Carbon Dioxide 21 mmol/L (23-31); Chloride 105 mmol/L (98-107); Estimated GFR 89; Glucose 128 mg/dL (83-110); Magnesium 1.7 mg/dL (1.6-2.6); Potassium 3.8 mmol/L (3.5-5.1); Sodium 133 mmol/L (136-145)
[2024-08-11 05:28] LABS: Band 10 % (5-11); Large Platelets 7.8 % (0-5); Lymphocytes 14 % (21-51); Monocytes 7 % (0-10); Neutrophil 69 % (42-75); Platelet Adequacy Comment Platelets Normal; Polychromasia SLIGHT = 2-3 cells HPF (0-2); Reactive Lymphocytes 1 % (0-10); Smudge Cells 10.7 %
[2024-08-11] MEDS: Magnesium 2 GM/50 ML(in water) 2 GM in Premix 1 BAG IVPB SCH (10:42)
[2024-08-11] MEDS: Aspirin 81 mg Enteric Coated Tablet PO SCH (10:48)
[2024-08-12 03:58] LABS: Hemoglobin 9.7 g/dL (14.0-18.0); Mean Corpuscular HGB CONC 34.6 g/dL (32.0-36.0); Mean Corpuscular Hemoglobin 31.7 pg (27.0-31.0); Mean Corpuscular Volume 91.5 fL (78.0-98.0); Mean Platelet Volume 10.2 fL (7.4-10.4); Platelet Count 266 10x3/uL (130-400); RBC Distribution Width 17.2 % (11.5-14.5); Red Blood Cell (RBC) Count 3.06 mill/uL (4.70-6.10)
[2024-08-12 04:07] LABS: Anion Gap 11 mmol/L (10-20); BUN (Urea Nitrogen) 21 mg/dL (8.4-25.7); Calc. Creatinine Clearance 87 mL/min (70-130); Calcium 7.6 mg/dL (7.8-10.44); Carbon Dioxide 23 mmol/L (23-31); Cardiac Risk 5.8 (Less than 4.5); Chloride 107 mmol/L (98-107); Cholesterol 144 mg/dl (< 200 Desired); Estimated GFR 88; Glucose 110 mg/dL (83-110); HDL Cholesterol 25 mg/dL (>60 Neg Risk); LDL Cholesterol, Calculated 96 mg/dL; Magnesium 1.7 mg/dL (1.6-2.6); Potassium 4.2 mmol/L (3.5-5.1); Sodium 137 mmol/L (136-145); Triglycerides 116 mg/dL (Less than 150)
[2024-08-12 04:37] LABS: Band 31 % (5-11); Dohle Bodies MODERATE; Large Platelets 1.9 % (0-5); Lymphocytes 14 % (21-51); Metamyelocyte 5 % (0-0); Monocytes 3 % (0-10); Neutrophil 47 % (42-75); Platelet Adequacy Comment Platelets Normal; Polychromasia SLIGHT = 2-3 cells HPF (0-2); Smudge Cells 15.4 %; Toxic Granulation SLIGHT
[2024-08-12] MEDS ORDERED: cefTRIAXone Sodium 2,000 MG in Syringe 0 ML IVPB SCH (08:30)
[2024-08-12] MEDS: cefTRIAXone\\ROCEPHIN 2 GM in Sodium Chloride 0.9% 100 ML IVPB SCH (10:29)
[2024-08-12] MEDS: Magnesium 2 GM/50 ML(in water) 2 GM in Premix 1 BAG IVPB SCH (10:31)
[2024-08-12] MEDS: Amiodarone 200 MG TAB PO SCH (14:51)
[2024-08-14] MEDS: Digoxin 0.5 MG/2 ML AMP SLOW IVP SCH (09:02)
[2024-08-14] MEDS ORDERED: Glycerin Adult Supp. (12 ct jar) PR PRN (14:55)
[2024-08-14] MEDS ORDERED: Bisacodyl 5 MG TAB PO PRN (14:56)
[2024-08-14 16:16] VITALS: BMI 24.0
[2024-08-14] MEDS: Acetaminophen 500 MG TAB PO SCH (16:33)
[2024-08-14] MEDS: Bisacodyl 5 MG TAB PO SCH (16:34)
[2024-08-15 06:34] LABS: Anion Gap 11 mmol/L (10-20); Carbon Dioxide 22 mmol/L (23-31)
[2024-08-15 06:35] LABS: BUN (Urea Nitrogen) 35 mg/dL (8.4-25.7); Calc. Creatinine Clearance 80 mL/min (70-130); Estimated GFR 86
[2024-08-15 06:37] LABS: Calcium 7.4 mg/dL (7.8-10.44); Chloride 106 mmol/L (98-107); Glucose 89 mg/dL (83-110); Potassium 4.1 mmol/L (3.5-5.1); Sodium 135 mmol/L (136-145)
[2024-08-15 06:46] LABS: Band 10 % (5-11); Elliptocytes SLIGHT = 2-5 cells HPF (0-1); Large Platelets 7.9 % (0-5); Lymphocytes 6 % (21-51); Macrocytosis SLIGHT = 6-15 cells HPF (0-5); Monocytes 7 % (0-10); Neutrophil 76 % (42-75); Platelet Adequacy Comment Platelets Normal; Polychromasia SLIGHT = 2-3 cells HPF (0-2); Smudge Cells 10.9 %
[2024-08-15 07:35] LABS: Hematocrit 27.8 % (42.0-52.0); Mean Corpuscular HGB CONC 32.4 g/dL (32.0-36.0); Mean Corpuscular Hemoglobin 31.4 pg (27.0-31.0); Mean Corpuscular Volume 96.9 fL (78.0-98.0); Mean Platelet Volume 10.3 fL (7.4-10.4); Platelet Count 311 10x3/uL (130-400); RBC Distribution Width 18.2 % (11.5-14.5); Red Blood Cell (RBC) Count 2.87 mill/uL (4.70-6.10)
[2024-08-15] MEDS: Thiamine 100 MG TAB PO SCH (09:18)
[2024-08-15] MEDS: Amiodarone 200 MG TAB PO SCH (09:18)
[2024-08-15] MEDS: Folic Acid 1 MG TAB PO SCH (09:19)
[2024-08-15 18:07] VITALS: BP 110/64; TEMP 98
[2024-08-16] MEDS ORDERED: Digoxin 0.125 MG TAB PO SCH (09:00)
== END 2024-08-15 18:20 | DRG 551 ==
LOC: ERS 23:00 → ERHOLD 07-29 03:38 → MSONC 07-29 16:54 → OBSVTOIN 07-30 10:57 → 2NO 07-30 15:24 → CCU 08-04 21:34 → 2NO 08-08 15:45
PROVIDERS: ADMIT Student in an Organized Health Care Education/Training Program; ATTEND Hospitalist
PROC: 4A00X4Z Measurement of Central Nervous Electrical Activity, External Approach (ICD-10-PCS; principal; 2024-08-01)
PROC: 3E033XZ Introduction of Vasopressor into Peripheral Vein, Percutaneous Approach (ICD-10-PCS; 2024-08-05)
PROC: 0BH17EZ Insertion of Endotracheal Airway into Trachea, Via Natural or Artificial Opening (ICD-10-PCS; 2024-08-05)
PROC: 5A1945Z Respiratory Ventilation, 24-96 Consecutive Hours (ICD-10-PCS; 2024-08-05)
DX: S22.079A Unspecified fracture of T9-T10 vertebra, initial encounter for closed fracture (principal); D61.811 Other drug-induced pancytopenia; G93.41 Metabolic encephalopathy; I63.9 Cerebral infarction, unspecified; J15.5 Pneumonia due to Escherichia coli; J96.01 Acute respiratory failure with hypoxia; C90.00 Multiple myeloma not having achieved remission; E87.1 Hypo-osmolality and hyponatremia; E87.20 Acidosis, unspecified; S22.089A Unspecified fracture of T11-T12 vertebra, initial encounter for closed fracture; R29.6 Repeated falls; R13.12 Dysphagia, oropharyngeal phase; E87.6 Hypokalemia; E03.9 Hypothyroidism, unspecified; E86.0 Dehydration; W19.XXXA Unspecified fall, initial encounter; R41.0 Disorientation, unspecified; I48.0 Paroxysmal atrial fibrillation; E88.09 Other disorders of plasma-protein metabolism, not elsewhere classified; T45.1X5A Adverse effect of antineoplastic and immunosuppressive drugs, initial encounter
CPT/HCPCS: 0241U; 36415; 36416; 36600; 70450; 70551; 71045; 71250; 72125; 74177; 74230; 80048; 80053; 80061; 80076; 80162; 81001; 82040; 82330; 82550; 82607; 82805; 83605; 83735; 83880; 83970; 84443; 84484; 85025; 86141; 87040; 87077; 87149; 87186; 87428; 87633; 93005; 93010; 93306; 93880; 94002; 94003; 94640; 95700; 95711; 95957; J0613; J0696; J1160; J1447; J1630; J2060; J2185; J2543; J2704; J3010; J3411; J3475; J7030; J7120; J7620; J8540

== ENCOUNTER 2025-02-25 08:21 | Outpatient (CLI) | payer MEDICARE, OTHER | END 2025-02-25 08:22 | disposition home or self-care (01) | LOC: SCSMRI 08:21 | PROVIDERS: ATTEND Internal Medicine Hematology & Oncology | DX: C79.51 Secondary malignant neoplasm of bone (principal); E83.52 Hypercalcemia; C90.00 Multiple myeloma not having achieved remission; M48.56XA Collapsed vertebra, not elsewhere classified, lumbar region, initial encounter for fracture; S76.911A Strain of unspecified muscles, fascia and tendons at thigh level, right thigh, initial encounter; S76.012A Strain of muscle, fascia and tendon of left hip, initial encounter; M25.451 Effusion, right hip; S76.011A Strain of muscle, fascia and tendon of right hip, initial encounter; M89.9 Disorder of bone, unspecified; R60.0 Localized edema | CPT/HCPCS: 72197 ==

== ENCOUNTER 2025-03-05 10:45 | Outpatient (CLI) | payer MEDICARE, OTHER | END 2025-03-05 10:46 | disposition home or self-care (01) | LOC: SCSMRI 10:45 | PROVIDERS: ATTEND Radiology Radiation Oncology | DX: C90.00 Multiple myeloma not having achieved remission (principal); S22.089A Unspecified fracture of T11-T12 vertebra, initial encounter for closed fracture; M47.817 Spondylosis without myelopathy or radiculopathy, lumbosacral region; M48.07 Spinal stenosis, lumbosacral region | CPT/HCPCS: 72158 ==

== ENCOUNTER 2025-06-17 09:30 | Outpatient (CLI) | payer MEDICARE, OTHER | END 2025-06-17 09:31 | disposition home or self-care (01) | LOC: PET 09:30 | PROVIDERS: ATTEND Internal Medicine Hematology & Oncology | DX: C90.00 Multiple myeloma not having achieved remission (principal); C79.31 Secondary malignant neoplasm of brain; E83.52 Hypercalcemia | CPT/HCPCS: 78816; A9552 ==